=== PATIENT | male | born 1985 | race Caucasian/White ===

== ENCOUNTER 2022-11-28 08:16 | Day surgery (SDC) | payer OTHER ==
[2022-11-28] MEDS ORDERED: Ringers Lactate 1,000 ML IV ONE (08:31)
[2022-11-28] MEDS ORDERED: OXYMETAZOLINE HCL 0.05% 15ML NAS ONE (11:00)
[2022-11-28] MEDS ORDERED: LIDOCAINE HCL/EPINEPHRINE 20 ML MDV ONE (11:01)
[2022-11-28] MEDS ORDERED: NA CHLORIDE 0.9% 0 ML ONE (11:01)
[2022-11-28] MEDS ORDERED: ROCURONIUM 50 MG/5 ML VIAL IV ONE (11:22)
[2022-11-28] MEDS ORDERED: dexAMETHasone 10 MG/ML VIAL ONE (11:22)
[2022-11-28] MEDS ORDERED: propofoL 200 MG/20 ML VIAL IV ONE (11:22)
[2022-11-28] MEDS ORDERED: FENTANYL CITR 100 MCG/2 ML ONE ×2 (11:22→13:00)
[2022-11-28] MEDS ORDERED: MIDAZOLAM HCL 2 MG/2 ML INJ ONE (11:22)
[2022-11-28] MEDS ORDERED: LIDOCAINE 2% MPF 5 ML VIAL ONE (11:28)
[2022-11-28] MEDS ORDERED: ONDANSETRON 4 MG/2 ML VIAL ONE (11:28)
[2022-11-28] MEDS: OXYMETAZOLINE HCL 0.05% 15ML NAS ONE ×3 (11:58→12:16)
[2022-11-28] MEDS ORDERED: HYDRALAZINE HCL 20 MG/ML VIAL ONE (12:49)
[2022-11-28] MEDS ORDERED: KETOROLAC 30 MG/ML INJ ONE (13:34)
--- NOTE | 2022-11-28 14:13 | P.OP ---
Date of Service: 11/28/22 Surgeon: Dr. Stephanie Macdonald Director Of Automation: None Procedure: Evaluation of sleep disordered breathing by examination of upper airway using an endoscope; CPT: 93656 Nasal endoscopy diagnostic with biopsy; CPT: 39139 Preoperative diagnosis: Moderate or severe obstructive sleep apnea with positive airway pressure intolerance. Neoplasm uncertain behavior left nasal cavity. Postoperative diagnosis: Moderate or severe sleep apnea with positive pressure airway intolerance. 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 They present today for drug- induced sleep endoscopy to better characterize the location and pattern of obstruction and to predict appropriate medical and/or surgical options moving forward Procedure findings: There was complete concentric collapse / palatal obstruction. Friable and vascular mass on left nasal cavity possibly attached to posterior inferior turbinate or from the middle meatus. Long redundant soft palate. Description of procedure: The patient was brought to the endoscopy suite and was administered anesthesia via standard drug-induced sleep endoscopy protocol. The patient was administered propofol while under monitoring including oxygen concentration, CO2, blood pressure, and pulse under conditions felt to mimic sleep. The patient was nonresponsive to verbal commands but maintained spontaneous respiration. Patient was noted to have observed apnea and snoring consistent with diagnosis of obstructive sleep apnea. Under these conditions, the flexible endoscope was inserted into both sides of the nose and advanced to the nasopharynx, and oral pharynx with observation of the larynx. On initial exam, there was static collapse with secretions obstructing the oropharyngeal airway at the level of the soft palate. With further observation, the patient began exhibiting symptoms of obstructive sleep apnea including significant snoring. During this portion of the procedure the patient was noted to have fluttering of the soft palate and complete concentric collapse at the level of the soft palate including collapse of the lateral pharyngeal wall and soft palate. At the conclusion of the exam, the scope was withdrawn. There was no evidence of any injury to the nasal mucosa and no evidence of active epistaxis. This portion of the procedure was then concluded. Due to the findings on sleep endoscopy, a tonsillectomy set was brought into the field. The McIvor mouthgag was placed within the oral cavity and used to distract the tongue and allow visualization of the oral pharynx directly. The patient had previously undergone tonsillectomy many years ago and there was no significant tonsillar tissue noted. The patient's soft palate was noted to be somewhat elongated and redundant and floppy with a narrow anterior posterior distance between the soft palate and the posterior pharyngeal wall. The patient was then placed under general anesthetic and intubated using the glide scope due to poor visualization with traditional laryngoscopy. The head of bed was turned 90 degrees and the patient was prepped for nasal endoscopy and biopsy. A 0 degree endoscope was used to perform a nasal endoscopy. The right septum, inferior turbinate and middle turbinate were unremarkable. The mucosa was well decongested using Afrin prior to the procedure. The inferior meatus appeared clear. The middle meatus appeared clear with no evidence of any polyp or active infectious/inflammatory disease. The sphenoethmoid recess was unremarkable. The nasopharynx demonstrated a mild amount of adenoid tissue. The left nasal cavity was then visualized using a 0 degree endoscope. There was a spur and deviation narrowing the left nasal cavity. The anterior portion of the inferior turbinate appeared unremarkable. The anterior portion of the middle turbinate appeared unremarkable. There was a papillomatous growth but its exact attachment point was difficult to discern due to the presence of the septal spur. With gentle suctioning, the medial aspect of the mass when visualized through the middle meatus was somewhat friable resulting in moderate bleeding. The area was packed with Afrin-soaked pledgets for several minutes. The mass was subsequently injected with 1% lidocaine with epinephrine. After time for effect, the packing was removed. A straight Blakesley was used to grasp and remove a approximately 1.5 x 1 x 1 cm fragment of this mass. This resulted in moderate bleeding from the biopsy site. The nasal cavity was packed with multiple Afrin-soaked pledgets to apply pressure to the bleeding area. After several minutes these were removed and an area of bleeding on the inferior aspect of the middle turbinate were cauterized with a bayonet bipolar. A dditional suctioning and small fragments of additional portions of the mass were removed but due to the spur it was difficult to determine the exact attachment point. Additionally, no preoperative imaging had been performed so I was leery to continue without further clinical/radiographic data. The nasal cavity was repacked with Afrin-soaked pledgets and additional bipolar cauterization was performed. Once bleeding was controlled and all packing was removed and counts confirmed correct, the Posisep resorbable sinus dressing was placed under under endoscopic guidance into the left nasal cavity and soaked with saline. Examination of the right and left nasal cavity and nasopharynx did not demonstrate any additional bleeding. The patient was then returned to care of anesthesia for awakening and extubation in the operating room which proceeded without difficulty. I was present for and personally performed the entire procedure.
[2022-11-28] MEDS ORDERED: HYDROCODONE/APAP 10/325 TAB ONE (15:06)
[2022-11-28 15:53] VITALS: BP 185/93; TEMP 98.1; O2SAT 97
== END 2022-11-28 15:15 | disposition home or self-care (01) ==
LOC: OR 08:16
PROVIDERS: ATTEND Otolaryngology
PROC: 09JK8ZZ Inspection of Nasal Mucosa and Soft Tissue, Via Natural or Artificial Opening Endoscopic (ICD-10-PCS; principal; 2022-11-28 09:45)
PROC: 0CJY8ZZ Inspection of Mouth and Throat, Via Natural or Artificial Opening Endoscopic (ICD-10-PCS; 2022-11-28 09:45)
DX: D14.0 Benign neoplasm of middle ear, nasal cavity and accessory sinuses (principal); G47.33 Obstructive sleep apnea (adult) (pediatric)
CPT/HCPCS: 31237; 42975; 88305; J0360; J2704; J2001; J2250; J3010 ×2; J1100; J2405; J7120; J7050